=== PATIENT | male | born 1985 | race Caucasian/White ===

== ENCOUNTER 2017-04-12 23:46 | Emergency (ER) | payer SELFPAY ==
[2017-04-12 23:55] VITALS: BP 129/80; PULSE 100; TEMP 98; BMI 32.3
--- NOTE | 2017-04-12 23:55 | PDOC ---
History of Present Illness - General Chief Complaint: Injury Stated Complaint: LACERATION TO RIGHT MIDDLE FINGER Time Seen by Provider: 04/12/17 23:54 - History of Present Illness Initial Comments: This otherwise healthy 32-year-old man presents with a laceration of his right third finger. Patient states that he dropped a champagne bottle as he was entering his apartment. A shard of the broken bottle cut the proximal dorsal surface of his right third finger. No other injury sustained. Patient had copious bleeding from the wound, stopping with direct pressure. No numbness/ paresthesias/weakness noted in finger or remainder of the hand. Patient is unsure when his most recent tetanus prophylaxis was administered. Patient denies poor wound healing/easy bruisability/resistant organism infection or colonization. Past History - Past Medical History Allergies/Adverse Reactions: Allergies Allergy/AdvReac Type Severity Reaction Status Date / Time No Known Allergies Allergy Verified 04/12/17 23:48 Home Medications: Ambulatory Orders NK [No Known Home Medication] 04/12/17 Review of Systems - Review of Systems Able to Perform ROS?: Yes Comments:: 12 point review of systems is negative except for what is noted in the history of present illness *Physical Exam - Vital Signs Last Vital Signs Temp Pulse Resp BP Pulse Ox 98 F 100 H 18 129/80 97 04/12/17 23:50 04/12/17 23:50 04/12/17 23:50 04/12/17 23:50 04/12/17 23:50 - Physical Exam Comments: GENERAL: Adult male, alert and oriented 3, in no acute distress HEAD: Normal with no signs of trauma. EYES: PERRLA, EOMI, sclera anicteric, conjunctiva clear. ENT: Ears normal, nares patent, oropharynx clear without exudates. Dry mucous membranes. NECK: Normal range of motion, supple without lymphadenopathy, JVD, or masses. LUNGS: Breath sounds equal, clear to auscultation bilaterally. No wheezes, and no crackles. HEART:Regular rate and rhythm, normal S1 and S2 without murmur, rub or gallop. ABDOMEN:.normal bowel sounds No guarding,tenderness or rebound.No masses No distention. EXTREMITIES: Right third finger-2.5 cm full-thickness linear laceration of the proximal phalanx, dorsal surface Motor/sensory functioning intact throughout digit Distal digit is warm and dry with excellent capillary refill Remainder extremity exam is normal NEUROLOGICAL: Cranial nerves II through XII grossly intact. Normal speech. No focal neurological deficits. MUSCULOSKELETAL: Back non-tender to palpation, no CVA tenderness Because of the presence of broken glass at the scene of the injury, plain film of finger performed to evaluate for foreign body: No evidence of foreign body or fracture/dislocated seen on x-ray Procedures - Laceration/Wound Repair Right Proximal Dorsal 3rd digit Wound Length: to 2.5 cm Wound Explored: clean Wound's Depth, Shape: linear Irrigated w/ Saline: Yes Betadine Prep: No (Hibiclens/ethanol) Anesthesia: 1% Lidocaine Amount of Anesthetic (ccs): 2 Wound Repaired With: Sutures Suture Size/Type: 5:0 Number of Sutures: 5 Sterile Dressing Applied: Yes Splint Applied: No Progress: Right third finger prepped using ethanol/Hibiclens and sterilely draped. 2.5 mL of 1% lidocaine infiltrated into the wound for local anesthesia. Wound irrigated with 60 mL of sterile saline. Wound explored: No evidence of tendon or vascular involvement present. Wound edges closely apposed and wound repaired with 5 interrupted sutures of 5-0 nylon. Bacitracin and sterile dressing/tube dressing applied. Patient tolerated procedure well *DC/Admit/Observation/Transfer Diagnosis at time of Disposition: Finger laceration Qualifiers: Encounter type: initial encounter Finger: middle finger Damage to nail status: without damage Foreign body presence: without foreign body Laterality: right Qualified Code(s): S61.212A - Laceration without foreign body of right middle finger without damage to nail, initial encounter - Discharge Dispostion Disposition: HOME Condition at time of disposition: Stable - Referrals - Patient Instructions Printed Discharge Instructions: How to Care for a Laceration After Repair Additional Instructions: Keep hand at heart level or above for the next 24 hours Keep original dressing in place as dry as possible for 48 hours After 2 days, Band-Aid on wound during day/open at night until sutures removed Bacitracin or Neosporin ointment daily to wound until sutures removed Have sutures removed in 1 week Return or see your doctor if wound is red/swollen/painful or you have any red streaking from the wound - Post Discharge Activity
[2017-04-13] MEDS ORDERED: DIPHTH,PERTUSS(ACELL),TET 0.5 ML DISP.SYRIN IM ONE (01:38)
== END 2017-04-13 01:44 | disposition home or self-care (01) ==
LOC: FER 23:46
CPT/HCPCS: 73140-TC-RT; 90715; 99281-25